=== PATIENT | female | born 1990 | race Caucasian/White ===

== ENCOUNTER 2018-02-13 05:07 | Emergency (ER) | payer SELFPAY ==
[~2018-02-13] VITALS: Ht 157.5 cm; Wt 57.0 kg
[2018-02-13 05:10] VITALS: BP 113/55; PULSE 80; RESP 20; TEMP 98; O2SAT 96
[2018-02-13 05:21] VITALS: O2SAT 98
--- NOTE | 2018-02-13 05:22 | PD ---
HPI Chief Complaint: Respiratory Symptoms Time Seen by Provider: 05:18 Travel History International Travel<30 days: No Contact w/Intl Traveler<30days: No Traveled to known affect area: No History of Present Illness HPI 27-year-old female presents to the emergency department by private transportation for complaint of cough and shortness of breath. Cough is nonproductive. Patient denies fever chills. Patient has been visiting from [place] since January 31 with cough and congestion. Patient does admit to tobacco use and previous bronchitis but denies control pill use or clotting disorder. Patient does not report any lower extremity pain or swelling. Patient states no true chest discomfort and no pleuritic pain just feels tightness when she is breathing and symptoms are worsened by resting supine. Patient has history of reactive airways disease and Raynaud's syndrome. Patient admits to ongoing tobacco use. Patient has had no vomiting. Patient denies other concerns or complaints. Patient denies last period was 1 week ago and states that she is not . PFSH Past Medical History Narrative Medical Reactive airways disease/bronchitis, Raynaud's syndrome; tobacco use; nursing notes reviewed ?: Not LMP: 02-06-18 Social History Tobacco Use: Yes Allergies-Medications (Allergen,Severity, Reaction): Coded Allergies: No Known Allergies (Unverified , 02/13/18) Review of Systems Except as stated in HPI: all other systems reviewed are Neg General / Constitutional: No: Fever, Chills HENT: Positive: Congestion Cardiovascular: No: Chest Pain or Discomfort Respiratory: Positive: Cough, Shortness of Breath, Wheezing, Orthopnea, No: Hemoptysis, Pleuritic Pain Gastrointestinal: No: Nausea, Vomiting, Abdominal Pain Genitourinary: No: Dysuria Musculoskeletal: No: Myalgias, Arthralgias, Edema, Pain Skin: No Rash Neurologic: No: Dizziness Psychiatric: No: Anxiety Hematologic/Lymphatic: No: Easy Bruising Physical Exam Narrative GENERAL: Well-developed well-nourished female and moderate respiratory distress without stridor or hoarseness SKIN: Warm and dry. HEAD: Normocephalic. EYES: No scleral icterus. No injection or drainage. NECK: Supple, trachea midline. No JVD or lymphadenopathy. CARDIOVASCULAR: Regular rate and rhythm without murmurs, gallops, or rubs. RESPIRATORY: Breath sounds equal bilaterally inspiratory and expiratory wheezing. No accessory muscle use. GASTROINTESTINAL: Abdomen soft, non-tender, nondistended. MUSCULOSKELETAL: No cyanosis, or edema. BACK: Nontender without obvious deformity. No CVA tenderness. Data Data Last Documented VS Vital Signs Date Time Temp Pulse Resp B/P (MAP) Pulse Ox O2 Delivery O2 Flow Rate FiO2 02/13/18 06:32 91 16 100/60 (73) 100 Room Air 02/13/18 05:10 98.0 Orders Orders Complete Blood Count With Diff (02/13/18 05:18) Basic Metabolic Panel (Bmp) (02/13/18 05:18) B-Type Natriuretic Peptide (02/13/18 05:18) Magnesium (Mg) (02/13/18 05:18) Iv Access Insert/Monitor (02/13/18 05:18) Ecg Monitoring (02/13/18 05:18) Oximetry (02/13/18 05:18) Oxygen Administration (02/13/18 05:18) Chest, Single Ap (02/13/18 05:18) Sodium Chloride 0.9% Flush (Ns Flush) (02/13/18 05:30) Methylprednisolone So Succ Inj (Solumedr (02/13/18 05:30) Albuterol-Ipratropium Neb (Duoneb Neb) (02/13/18 05:30) Sodium Chlorid 0.9% 500 Ml Inj (Ns 500 M (02/13/18 05:30) Ed Discharge Order (02/13/18 06:36) Labs Laboratory Tests Test 02/13/18 05:30 White Blood Count 6.5 TH/MM3 Red Blood Count 4.59 MIL/MM3 Hemoglobin 13.0 GM/DL Hematocrit 38.7 % Mean Corpuscular Volume 84.3 FL Mean Corpuscular Hemoglobin 28.3 PG Mean Corpuscular Hemoglobin Concent 33.6 % Red Cell Distribution Width 12.5 % Platelet Count 298 TH/MM3 Mean Platelet Volume 7.7 FL Neutrophils (%) (Auto) 45.1 % Lymphocytes (%) (Auto) 34.3 % Monocytes (%) (Auto) 8.0 % Eosinophils (%) (Auto) 11.9 % Basophils (%) (Auto) 0.7 % Neutrophils # (Auto) 3.0 TH/MM3 Lymphocytes # (Auto) 2.2 TH/MM3 Monocytes # (Auto) 0.5 TH/MM3 Eosinophils # (Auto) 0.8 TH/MM3 Basophils # (Auto) 0.0 TH/MM3 CBC Comment DIFF FINAL Differential Comment Blood Urea Nitrogen 9 MG/DL Creatinine 0.45 MG/DL Random Glucose 91 MG/DL Calcium Level 8.5 MG/DL Magnesium Level 2.0 MG/DL Sodium Level 140 MEQ/L Potassium Level 3.6 MEQ/L Chloride Level 109 MEQ/L Carbon Dioxide Level 25.0 MEQ/L Anion Gap 6 MEQ/L Estimat Glomerular Filtration Rate 167 ML/MIN B-Type Natriuretic Peptide 7 PG/ML MDM Medical Decision Making Medical Screen Exam Complete: Yes Emergency Medical Condition: Yes Medical Record Reviewed: Yes Interpretation(s) cxr: nad per reading radiologist Differential Diagnosis Bronchitis pneumonia reactive airways disease environmental/seasonal rhinosinusitis; also consider PE,chf Narrative Course IV access obtained specimens collected and sent for resulting breathing treatments administered along with Solu-Medrol 125 mg IV Patient denies and does not want test performed Patient informed of imaging results patient clinically improved after DuoNeb updrafts. Patient clinically improved after IV Solu-Medrol and DuoNeb updraft 3 chest x- ray reveals no lobar infiltrate; stable for outpatient management Diagnosis Primary Impression: Reactive airway disease with acute exacerbation Qualified Codes: J45.21 - Mild intermittent asthma with (acute) exacerbation Additional Impressions: Acute bronchitis Qualified Codes: J20.9 - Acute bronchitis, unspecified Tobacco use Referrals: Primary Care Physician call for appointment Patient Instructions: General Instructions Departure Forms: Tests/Procedures, Work Release Special Instructions: no work x 1 day Additional Instructions: Increase fluid hydration Use inhaler as prescribed Complete course of steroid taper No work 1 day Monitor temperature for fever take as needed acetaminophen/Tylenol for fever 100.4F or greater Discontinue tobacco use Med/Other Pt SpecificInfo: Prescription(s) given Scripts Albuterol 18 GM Inh (Ventolin Hfa 18 GM Inh) 90 Mcg/Act Aer 2 PUFF INH Q4-6H Y for SHORTNESS OF BREATH, #1 INHALER 0 Refills Prov: Melissa Bosch MD 02/13/18 Methylprednisolone Dosepak (Medrol Dosepak) 4 Mg Dspk 4 MG PO DIRECTED, #1 DSPK 0 Refills Per Pharmacist direction Prov: Melissa Bosch MD 02/13/18 Disposition: 01 DISCHARGE HOME Condition: Stable Melissa Bosch MD Feb 13, 2018 05:22
[2018-02-13] MEDS ORDERED: SODIUM CHLORIDE 0.9% FLUSH 10 ML FLUSH IVF PRN (05:30)
[2018-02-13] MEDS ORDERED: methylPREDNISolone SOD SUCC 125 MG/2 ML VIAL IV PUSH ONE (05:30)
[2018-02-13] MEDS ORDERED: SODIUM CHLORID 0.9% 500 ML INJ 500 ML IV ONE (05:30)
[2018-02-13 05:37] LABS: BASOPHIL % 0.7 % (0.0-2.0); EOSINOPHIL # 0.8 TH/MM3 (0-0.4); EOSINOPHIL % 11.9 % (0.0-4.0); HEMATOCRIT 38.7 % (35.0-46.0); LYMPH % 34.3 % (9.0-44.0); LYMPHOCYTE # 2.2 TH/MM3 (1.0-4.8); MEAN CELL VOLUME 84.3 FL (80.0-100.0); MEAN CORPUSCULAR HEMOGLOBIN 28.3 PG (27.0-34.0); MEAN CORPUSCULAR HGB CONC 33.6 % (32.0-36.0); MEAN PLATELET VOLUME 7.7 FL (7.0-11.0); MONOCYTE # 0.5 TH/MM3 (0-0.9); NEUT % 45.1 % (16.0-70.0); PLATELET COUNT 298 TH/MM3 (150-450); RED BLOOD COUNT 4.59 MIL/MM3 (4.00-5.30); RED CELL DISTRIBUTION WIDTH 12.5 % (11.6-17.2); WHITE BLOOD COUNT 6.5 TH/MM3 (4.0-11.0)
[2018-02-13 05:48] LABS: CALCIUM 8.5 MG/DL (8.5-10.1)
[2018-02-13] MEDS: RESP: ALBUTEROL 2.5 MG/IPRATROPIUM 0.5 MG NEB (SCH) INH ×2 (05:51→05:58)
[2018-02-13 05:52] LABS: CREATININE 0.45 MG/DL (0.50-1.00)
--- NOTE | 2018-02-13 06:15 | RADRPT ---
EXAM DATE/TIME: 02/13/2018 05:45 [facility] COMPARISON: No previous studies available for comparison. INDICATIONS : Shortness of breath. MEDICAL HISTORY : None. SURGICAL HISTORY : None. ENCOUNTER: Initial ACUITY: 1 day PAIN SCORE: 0/10 LOCATION: Bilateral chest FINDINGS: A single view of the chest demonstrates the lungs to be symmetrically aerated without evidence of mas s, infiltrate or effusion. The cardiomediastinal contours are unremarkable. Osseous structures are intact. CONCLUSION: No acute cardiopulmonary process. Gaurav Hidalgo MD on February 13, 2018 at 6:13 Board Certified Radiologist. This report was verified electronically.
[2018-02-13 06:32] VITALS: BP 100/60; PULSE 91; RESP 16; O2SAT 100
[2018-02-13] MEDS ORDERED: VENTAER INH (06:37)
[2018-02-13] MEDS ORDERED: MEDR4PAK PO (06:37)
== END 2018-02-13 06:51 | disposition home or self-care (01) ==
LOC: PHED 05:07
DX: J45.21 Mild intermittent asthma with (acute) exacerbation (principal); J20.9 Acute bronchitis, unspecified; Z72.0 Tobacco use
CPT/HCPCS: 71045; 80048; 83735; 83880; 85025; 94640; 94664; 96361; 96374; 99284; J2930; J7040

== ENCOUNTER 2018-02-20 00:50 | Emergency (ER) | payer SELFPAY ==
[~2018-02-20] VITALS: Ht 157.5 cm; Wt 57.0 kg
[~2018-02-20 00:50] MED LIST: MEDR4PAK PO; VENTAER INH
[2018-02-20 00:54] VITALS: PULSE 82; RESP 18; TEMP 98.2; O2SAT 97
== END 2018-02-20 03:42 | disposition left against medical advice (07) ==
LOC: PHED 00:50
DX: M25.572 Pain in left ankle and joints of left foot (principal); Z53.21 Procedure and treatment not carried out due to patient leaving prior to being seen by health care provider
CPT/HCPCS: 99281